=== PATIENT | male | born 1975 | race African-American/Black ===

== ENCOUNTER 2021-02-14 18:56 | Emergency (ER) | payer OTHER ==
[~2021-02-14] VITALS: Ht 190.5 cm; Wt 75.0 kg
[2021-02-14 19:03] VITALS: BP 113/78
[2021-02-14 20:04] LABS: BASO % 1 % (0-3); EOS # 1.2 x10^3/uL (0.0-0.7); EOS % 23 % (0-3); HEMATOCRIT 44.2 % (39.0-53.0); HEMOGLOBIN 15.1 g/dL (13.0-17.5); LYMPH # 1.6 x10^3/uL (1.0-4.8); LYMPH % 31 % (24-48); MEAN CORPUSCULAR HEMOGLOBIN 32 pg (25-35); MEAN CORPUSCULAR HGB CONC 34 g/dL (31-37); MEAN CORPUSCULAR VOLUME 94 fL (79-100); MONO # 0.4 x10^3/uL (0.0-1.1); MONO % 7 % (0-9); NEUT % 38 % (31-73); PLATELET COUNT 242 x10^3/uL (140-400); RED BLOOD COUNT 4.72 x10^6/uL (4.30-5.70); RED CELL DISTRIBUTION WIDTH 14.1 % (11.5-14.5); WHITE BLOOD COUNT 5.2 x10^3/uL (4.0-11.0)
[2021-02-14 20:16] LABS: CALCIUM 8.2 mg/dL (8.5-10.1); GFR 98.7; POTASSIUM 3.6 mmol/L (3.5-5.1)
--- NOTE | 2021-02-14 20:17 | PHYS DOC ---
Past Medical History Past Medical History: No Pertinent History Past Surgical History: Other Additional Past Surgical Histo: WISDOM TEETH. Smoking Status: Current Every Day Smoker Alcohol Use: None Drug Use: None General Adult EDM: Chief Complaint: ABDOMINAL PAIN HPI: HPI: Patient is a 45yo male presenting for n/v. Onset was 48 hour prior when patient reportedly binge drank with friends. Had too numerous to count liquor and beer drinks. States he might have eaten questionable food throughout the night as well. States he woke up the follow-up day and ever since, has felt generalized malaise, fatigue, vague headache, nauseas and has had several episodes of non-bloody non-bilious emesis. States he has also had looser stools than usual. He has had difficulty with PO intake. Has had vague abdominal cramping ever since but this has not been consistent. No significant PMHx, no prior abdominal surgeries Review of Systems: Review of Systems: Fourteen body systems of review of systems have been reviewed. See HPI for p ertinent positives and negative responses, other ryan all other systems are negative, non-pertinent or non-contributory Heart Score: C/O Chest Pain: No HEART Score for Chest Pain: HEART Score for Chest Pain Response (Comments) Value History Slighlty/Non-Suspicious 0 ECG Nonspecific Repolarizatio 1 Age < 45 0 Risk Factors 1 or 2 Risk Factors 1 Troponin < Normal Limit 0 Total 2 Risk Factors: Risk Factors: DM, Current or recent (<one month) smoker, HTN, HLP, family history of CAD, obesity. Risk Scores: Score 0 - 3: 2.5% MACE over next 6 weeks - Discharge Home Score 4 - 6: 20.3% MACE over next 6 weeks - Admit for Clinical Observation Score 7 - 10: 72.7% MACE over next 6 weeks - Early Invasive Strategies Allergies: Allergies: Allergies Coded Allergies Type Severity Reaction Last Updated Verified No Known Drug Allergies 05/14/14 No Physical Exam: PE: Constitutional: Well developed, well nourished, no acute distress, non-toxic appearance. HENT: Normocephalic, atraumatic, bilateral external ears normal, oropharynx moist, no oral exudates, nose normal. Eyes: PERRLA, EOMI, conjunctiva normal, no discharge. Neck: Normal range of motion, no tenderness, supple, no stridor. Cardiovascular: Heart rate regular, sinus rhythm, no murmurs rubs or gallops Lungs & Thorax: Bilateral breath sounds clear to auscultation Abdomen: Bowel sounds normal, soft, no tenderness, no masses, no pulsatile masses. Nonsurgical abdomen, no peritoneal signs Skin: Warm, dry, no erythema, no rash. Back: No tenderness, no CVA tenderness. Extremities: No tenderness, no cyanosis, no clubbing, ROM intact, no edema. Neurologic: Alert and oriented X 3, grossly normal motor & sensory function, no focal deficits noted. Psychologic: Affect normal, judgement normal, mood normal. Current Patient Data: Labs: Laboratory Tests Test 02/14/21 19:45 White Blood Count 5.2 x10^3/uL Red Blood Count 4.72 x10^6/uL Hemoglobin 15.1 g/dL Hematocrit 44.2 % Mean Corpuscular Volume 94 fL Mean Corpuscular Hemoglobin 32 pg Mean Corpuscular Hemoglobin Concent 34 g/dL Red Cell Distribution Width 14.1 % Platelet Count 242 x10^3/uL Neutrophils (%) (Auto) 38 % Lymphocytes (%) (Auto) 31 % Monocytes (%) (Auto) 7 % Eosinophils (%) (Auto) 23 % Basophils (%) (Auto) 1 % Neutrophils # (Auto) 2.0 x10^3/uL Lymphocytes # (Auto) 1.6 x10^3/uL Monocytes # (Auto) 0.4 x10^3/uL Eosinophils # (Auto) 1.2 x10^3/uL Basophils # (Auto) 0.0 x10^3/uL Segmented Neutrophils % 42 % Lymphocytes % 26 % Monocytes % 6 % Eosinophils % 26 % Platelet Estimate Adequate Sodium Level 144 mmol/L Potassium Level 3.6 mmol/L Chloride Level 106 mmol/L Carbon Dioxide Level 28 mmol/L Anion Gap 10 Blood Urea Nitrogen 12 mg/dL Creatinine 1.0 mg/dL Estimated GFR (Cockcroft-Gault) 98.7 BUN/Creatinine Ratio 12 Glucose Level 96 mg/dL Calcium Level 8.2 mg/dL Total Bilirubin 0.3 mg/dL Aspartate Amino Transf (AST/SGOT) 11 U/L Alanine Aminotransferase (ALT/SGPT) 19 U/L Alkaline Phosphatase 101 U/L Troponin I Quantitative < 0.017 ng/mL Total Protein 6.5 g/dL Albumin 3.7 g/dL Albumin/Globulin Ratio 1.3 Lipase 61 U/L Current Medications Medications (Trade) Dose Ordered Sig/Carlin Route PRN Reason Start Time Stop Time Status Last Admin Dose Admin Metoclopramide HCl (Reglan Vial) 10 mg 1X ONCE IVP 02/14/21 20:30 02/14/21 20:31 DC 02/14/21 20:53 Vital Signs: Vital Signs Date Time Temp Pulse Resp B/P (MAP) Pulse Ox O2 Delivery O2 Flow Rate FiO2 02/14/21 19:03 97.7 58 16 113/78 (90) 99 Room Air 97.7 EKG: EKG: EKG ordered and interpreted by myself at 2050 hrs. as sinus rhythm at 56 bpm, unremarkable intervals, no axis deviation, no acute ischemic findings, no STEMI Radiology/Procedures: Radiology/Procedures: Exam: Ultrasound abdomen limited Indication: Epigastric and right upper quadrant pain Technique: Real-time grayscale and color Doppler images of the right upper quadrant were obtained by the department material mover. Comparisons: None FINDINGS: Liver contour is normal. Hepatopedal flow noted in the portal vein. Gallbladder is distended. No pericholecystic fluid or wall thickening. Common bile duct measures 4 mm in diameter. Right kidney measures 10.4 cm in length. No hydronephrosis. Visualized portions aorta and IVC are unremarkable. IMPRESSION: 1. No sonographic appearance of the liver. 2. No right-sided hydronephrosis. 3. No sonographic evidence for acute cholecystitis. Electronically signed by: Ervin Johnson MD (02/14/2021 9:08 PM) [facility] Course & Med Decision Making: Course & Med Decision Making VSS. HPI concerning for gastritis vs other GI issue s/p ETOH binge, PE unremarkable for emergent/surgical issues ER workup obtained and non-concerning, this was fully disclosed to patient. He improved symptomatically with provided ER intervention I discussed potential need for hospitalization but patient felt well enough for discharge home, was tolerating PO intake and ambulating without issues Patient has good access to PCP, close follow-up advised. Strict return precautions discussed with good understanding. Dragon Disclaimer: Dragon Disclaimer: This electronic medical record was generated, in whole or in part, using a voice recognition dictation system. Departure Departure Impression: Primary Impression: Abdominal pain Disposition: HOME / SELF CARE / HOMELESS Condition: IMPROVED Referrals: MAGDALENA SKINNER MD (PCP) Patient Instructions: Abdominal Pain (Nonspecific) Additional Instructions: You have been evaluated in the Emergency Department today for abdominal pain. Your evaluation was not suggestive of any emergent condition requiring medical intervention at this time. However, some abdominal problems make take more time to appear. Therefore, it is important for you to watch for any new symptoms or worsening of your current condition. As discussed, you need to call your primary care physician tomorrow for repeat evaluation within the upcoming week for repeat physical examination. As disclose, there might be a role in further diagnostic work-up and/or specialist referral in outpatient setting Return to the Emergency Department if you experience worsening pain, persistent fevers greater than 100.4, recurrent vomiting, blood in vomit, blood in stool, dark tarry stool, chest pain, difficulty breathing, or any other concerning symptoms. Scripts Famotidine (FAMOTIDINE) 10 Mg Tablet 10 MG PO HS for 14 Days, #14 TAB Prov: ABDI COX DO 02/14/21 Metoclopramide Hcl (REGLAN) 5 Mg Tablet 1 TAB PO TID for 5 Days, #15 TAB 0 Refills 1 hour prior to procedure Prov: ABDI COX DO 02/14/21 ABDI COX DO February 14, 2021 20:17
[2021-02-14 20:23] LABS: ALBUMIN 3.7 g/dL (3.4-5.0); ALBUMIN/GLOBULIN RATIO 1.3 (1.0-1.7); TOTAL BILIRUBIN 0.3 mg/dL (0.2-1.0); TOTAL PROTEIN 6.5 g/dL (6.4-8.2)
[2021-02-14] MEDS ORDERED: METOCLOPRAMIDE HCL 10 MG/2 ML VIAL. IVP ONE (20:30)
[2021-02-14 20:39] LABS: % EOS 26 % (0-5); % LYMPHS 26 % (24-48); % MONOS 6 % (0-10); % SEGS 42 % (35-66); PLT ESTIMATE ADEQUATE (ADEQUATE)
--- NOTE | 2021-02-14 21:10 | RAD ---
Exam: Ultrasound abdomen limited Indication: Epigastric and right upper quadrant pain Technique: Real-time grayscale and color Doppler images of the right upper quadrant were obtained by the department engineering manager electronics. Comparisons: None FINDINGS: Liver contour is normal. Hepatopedal flow noted in the portal vein. Gallbladder is distended. No pericholecystic fluid or wall thickening. Common bile duct measures 4 mm in diameter. Right kidney measures 10.4 cm in length. No hydronephrosis. Visualized portions aorta and IVC are unremarkable. IMPRESSION: 1. No sonographic appearance of the liver. 2. No right-sided hydronephrosis. 3. No sonographic evidence for acute cholecystitis. Electronically signed by: Ervin Johnson MD (02/14/2021 9:08 PM) [facility]
[2021-02-14] MEDS ORDERED: METO5TAB55 PO (21:35)
[2021-02-14] MEDS ORDERED: FAMO10TA69 PO (21:35)
--- NOTE | 2021-02-14 21:41 | EKG ---
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
[2021-02-14] MEDS ORDERED: PANTOPRAZOLE 40 MG TABLET.DR. PO ONE (21:45)
== END 2021-02-14 22:55 | disposition home or self-care (01) ==
LOC: ER 18:56
DX: R10.13 Epigastric pain (principal); F17.200 Nicotine dependence, unspecified, uncomplicated; R51.9 Headache, unspecified; R53.81 Other malaise; R53.83 Other fatigue
CPT/HCPCS: 36415; 76705; 80053; 83690; 84484; 85007; 85025; 93005; 96374; 99285; J2765